=== PATIENT | female | born 1935 | race Two or more races ===

== ENCOUNTER 2020-10-29 12:43 | Inpatient (IN) | payer MEDICARE, OTHER ==
[~2020-10-29] VITALS: Ht 152.4 cm; Wt 49.1 kg
[2020-10-29] MEDS ORDERED: MORPHINE SULFATE INJECTION 2 MG/ML SYRG IV ONE (13:30)
[2020-10-29] MEDS ORDERED: ONDANSETRON HCL 4 MG/2 ML VIAL IV ONE (13:30)
[2020-10-29 13:58] LABS: Basophils # (auto) 0.1 10 ^3/uL (0-0.2); Basophils % (auto) 0.8 % (0.0-2.0); Eosinophils # (auto) 0.2 10 ^3/uL (0-0.8); Eosinophils % (auto) 2.9 % (0.0-7.0); Hematocrit 37.2 % (36.0-46.0); Hemoglobin 12.4 g/dL (12.2-16.2); Lymphocytes # (auto) 1.1 10 ^3/uL (0.4-5.4); Lymphocytes % (auto) 16.5 % (10.0-50.0); Mean Corpuscular Hemoglobin 33.7 pg (28.0-32.0); Mean Corpuscular Hgb Conc. 33.5 g/dL (32.0-36.0); Mean Corpuscular Volume 100.6 fL (80.0-100.0); Monocytes # (auto) 0.6 10 ^3/uL (0-1.3); Monocytes % (auto) 9.6 % (0.0-12.0); Neutrophils # (auto) 4.8 10 ^3/uL (1.6-8.6); Neutrophils % (auto) 70.2 % (37.0-80.0); Red Cell Distribution Width 14.7 % (11.8-14.3); White Blood Cell 6.8 10^3/uL (4.4-10.8)
[2020-10-29 14:07] LABS: INR 1.1 (0.9-1.15); Partial Thromboplastin Time 29.4 sec (23.6-33.0)
[2020-10-29 14:32] LABS: Albumin 3.1 g/dL (3.4-5.0); Anion Gap 6 (5-15); Blood Urea Nitrogen 17 mg/dL (7-18); Carbon Dioxide 32 mmol/L (21-32); Chloride 98 mmol/L (98-107); Glucose 99 mg/dL (74-106); Potassium 4.3 mmol/L (3.5-5.1); Sodium 136 mmol/L (136-145)
[2020-10-29 14:40] LABS: Alanine Aminotransferase 25 U/L (13-56); Alkaline Phosphatase 76 U/L (45-117); Aspartate Aminotransferase 31 U/L (15-37); Bilirubin, Total 0.3 mg/dL (0.2-1.0); GFR African American 106 mL/min; GFR Non-African American 87 mL/min; Total Protein 7.7 g/dL (6.4-8.2)
[2020-10-29 14:54] LABS: Urine Bacteria NONE SEEN /hpf (None Seen); Urine Blood Negative /uL (Negative); Urine Hyaline Cast FEW /lpf (0 - 2); Urine Specific Gravity 1.013 (1.001-1.035); Urine WBC 1 /hpf (0 - 5)
[2020-10-29] MEDS ORDERED: HYDROcodone-ACET 5/325MG TAB PO PRN (15:00)
[2020-10-29] MEDS ORDERED: NITROGLYCERIN 0.4 MG SL TAB SL PRN (15:00)
[2020-10-29] MEDS ORDERED: ONDANSETRON HCL 4 MG/2 ML VIAL IV PRN (15:00)
[2020-10-29] MEDS ORDERED: MORPHINE SULFATE INJECTION 2 MG/ML SYRG IV PRN (15:00)
[2020-10-29] MEDS ORDERED: DOCUSATE SOD 100 MG CAP PO PRN (15:00)
[2020-10-29] MEDS ORDERED: ACETAMINOPHEN 500 MG TAB PO PRN (15:00)
[2020-10-29 19:45] VITALS: BP 143/71
[2020-10-29] MEDS: MORPHINE SULFATE INJECTION 2 MG/ML SYRG IV PRN (20:37)
[2020-10-29 21:31] VITALS: BP 143/71
[2020-10-30 05:00] VITALS: BP 142/59
[2020-10-30] MEDS ORDERED: PRIM250T29 PO (08:22)
[2020-10-30] MEDS: MORPHINE SULFATE INJECTION 2 MG/ML SYRG IV PRN ×2 (08:22→21:34)
[2020-10-30] MEDS ORDERED: ASPI-543 PO (08:22)
[2020-10-30] MEDS ORDERED: NIFE1TAB31 PO (08:22)
[2020-10-30] MEDS ORDERED: ESCI10TA PO (08:22)
[2020-10-30] MEDS ORDERED: CLON0.1D7 TD (08:22)
[2020-10-30] MEDS ORDERED: ROSU5TAB5 PO (08:22)
[2020-10-30] MEDS ORDERED: METO-6 PO (08:22)
[2020-10-30] MEDS ORDERED: LOSA-39 PO (08:22)
[2020-10-30 09:00] VITALS: BP 145/68
[2020-10-30] MEDS ORDERED: PANTOPRAZOLE 40 MG TAB PO SCH (10:00)
[2020-10-30] MEDS ORDERED: ENOXAPARIN SOD 40 MG/0.4 ML SYRINGE SC SCH (10:00)
[2020-10-30] MEDS ORDERED: TRANEXAMIC ACID 20 ML ONE (12:10)
[2020-10-30] MEDS ORDERED: EPINEPHrine HCL 1 MG/1 ML AMP ONE (12:11)
[2020-10-30] MEDS ORDERED: VANCOMYCIN HCL 1000 MG VL ONE (12:11)
[2020-10-30] MEDS ORDERED: fentaNYL CITRATE 100 MCG/2 ML VL ONE (12:45)
[2020-10-30] MEDS ORDERED: MIDAZOLAM HCL 2MG/2ML 2ml VIAL (1mg/ml) ONE (12:46)
[2020-10-30] MEDS ORDERED: BUPIVACAINE 0.5% P/F INJ 10 ML VIAL ONE (12:51)
[2020-10-30] MEDS ORDERED: ceFAZolin 1GM/50ML 100 ML IV ONE (12:55)
[2020-10-30 13:00] VITALS: BP 131/69
[2020-10-30] MEDS ORDERED: DexAMETHasone SOD PHOS 10MG/1ML VIAL INJ ONE (13:41)
[2020-10-30] MEDS ORDERED: PROPOFOL 10 MG/ML 20 ML IV ONE (13:58)
[2020-10-30] MEDS ORDERED: HYDROmorphone HCL 2 MG/ML VL IV PRN (14:00)
[2020-10-30] MEDS ORDERED: ePHEDrine SULFATE 50 MG/ML AMP IV PRN (14:00)
[2020-10-30] MEDS ORDERED: MIDAZOLAM HCL 2MG/2ML 2ml VIAL (1mg/ml) IV PRN (14:00)
[2020-10-30] MEDS ORDERED: MORPHINE SULFATE 4 MG/ML SYR/VIAL IV PRN (14:00)
[2020-10-30] MEDS ORDERED: LABETALOL HCL 5 MG/ML 4ML SYRINGE IV PRN (14:00)
[2020-10-30] MEDS ORDERED: hydrALAZINE HCL 20 MG/ML VL IV PRN (14:00)
[2020-10-30] MEDS ORDERED: ONDANSETRON HCL 4 MG/2 ML VIAL IV PRN (14:00)
[2020-10-30] MEDS ORDERED: IPRATROPIUM BROM 0.5 MG/2.5ML INH SOL NEB SCH (18:00)
[2020-10-30] MEDS ORDERED: ALBUTEROL SULF 2.5 MG/0.5ML(0.5%) NEB SOLN NEB SCH (18:00)
[2020-10-30] MEDS: ceFAZolin 1GM/50ML 50 ML IV SCH (21:15)
[2020-10-30] MEDS: LACTATED RINGER'S 1,000 ML IV SCH (21:16)
[2020-10-30 22:00] VITALS: BP 133/113
[2020-10-31] VITALS (8 sets, daily range): BP systolic 116–139; BP diastolic 51–69
[2020-10-31] MEDS: MORPHINE SULFATE INJECTION 2 MG/ML SYRG IV PRN ×2 (01:24→05:19)
[2020-10-31] MEDS: LACTATED RINGER'S 1,000 ML IV SCH (05:18)
[2020-10-31] MEDS: ceFAZolin 1GM/50ML 50 ML IV SCH (05:18)
[2020-10-31 06:21] LABS: Basophils # (auto) 0.1 10 ^3/uL (0-0.2); Eosinophils # (auto) 0 10 ^3/uL (0-0.8); Eosinophils % (auto) 0.1 % (0.0-7.0); Hematocrit 22.8 % (36.0-46.0); Monocytes # (auto) 1.3 10 ^3/uL (0-1.3); Nucleated Red Blood Cells % 0.1 %; Red Blood Cells 2.26 10^6/uL (4.0-5.20)
[2020-10-31 06:24] LABS: Basophils % (auto) 0.9 % (0.0-2.0); Lymphocytes # (auto) 0.9 10 ^3/uL (0.4-5.4); Lymphocytes % (auto) 7.1 % (10.0-50.0); Mean Corpuscular Hemoglobin 34.1 pg (28.0-32.0); Mean Corpuscular Hgb Conc. 33.8 g/dL (32.0-36.0); Monocytes % (auto) 10.9 % (0.0-12.0); Neutrophils # (auto) 9.8 10 ^3/uL (1.6-8.6); Red Cell Distribution Width 14.3 % (11.8-14.3)
[2020-10-31 06:40] LABS: Calcium 8.1 mg/dL (8.5-10.1); Potassium 4.1 mmol/L (3.5-5.1)
[2020-10-31] MEDS: IPRATROPIUM BROM 0.5 MG/2.5ML INH SOL NEB SCH ×3 (07:01→18:42)
[2020-10-31] MEDS: ALBUTEROL SULF 2.5 MG/0.5ML(0.5%) NEB SOLN NEB SCH ×3 (07:01→18:43)
[2020-10-31 07:45] LABS: Hemoglobin 7.7 g/dL (12.2-16.2)
[2020-10-31] MEDS ORDERED: ENOXAPARIN SOD 40 MG/0.4 ML SYRINGE SC SCH (10:00)
[2020-10-31] MEDS ORDERED: CITALOPRAM HYDROBR 20 MG TAB PO ONE (10:30)
[2020-10-31] MEDS ORDERED: METOPROLOL SUCCINATE XL 50 MG TAB PO ONE (10:30)
[2020-10-31] MEDS: PRIMIDONE 50 MG TAB PO SCH ×2 (10:45→21:04)
[2020-10-31 11:15] LABS: Hematocrit 21.6 % (36.0-46.0); Hemoglobin 7.4 g/dL (12.2-16.2)
[2020-10-31 18:38] LABS: Folate (Folic Acid) 6.06 ng/mL (5.38-24)
[2020-10-31] MEDS: HYDROcodone-ACET 5/325MG TAB PO PRN (19:54)
[2020-11-01 05:00] VITALS: BP 148/71
[2020-11-01] MEDS: HYDROcodone-ACET 5/325MG TAB PO PRN ×2 (05:27→16:18)
[2020-11-01] MEDS: PRIMIDONE 50 MG TAB PO SCH ×2 (05:27→13:38)
[2020-11-01 06:06] LABS: Basophils # (auto) 0.1 10 ^3/uL (0-0.2); Basophils % (auto) 0.4 % (0.0-2.0); Eosinophils # (auto) 0 10 ^3/uL (0-0.8); Hematocrit 29.3 % (36.0-46.0); Lymphocytes # (auto) 0.8 10 ^3/uL (0.4-5.4); Lymphocytes % (auto) 5.9 % (10.0-50.0); Mean Corpuscular Hemoglobin 32.4 pg (28.0-32.0); Mean Corpuscular Hgb Conc. 34.1 g/dL (32.0-36.0); Mean Corpuscular Volume 94.9 fL (80.0-100.0); Monocytes # (auto) 1.5 10 ^3/uL (0-1.3); Monocytes % (auto) 10.3 % (0.0-12.0); Neutrophils # (auto) 11.8 10 ^3/uL (1.6-8.6); Neutrophils % (auto) 83.4 % (37.0-80.0); Red Blood Cells 3.09 10^6/uL (4.0-5.20); Red Cell Distribution Width 17.9 % (11.8-14.3); White Blood Cell 14.1 10^3/uL (4.4-10.8)
[2020-11-01] MEDS: ALBUTEROL SULF 2.5 MG/0.5ML(0.5%) NEB SOLN NEB SCH ×3 (07:22→18:00)
[2020-11-01] MEDS: IPRATROPIUM BROM 0.5 MG/2.5ML INH SOL NEB SCH ×3 (07:22→18:00)
[2020-11-01 09:00] VITALS: BP 113/62
[2020-11-01] MEDS ORDERED: CITALOPRAM HYDROBR 20 MG TAB PO SCH (10:00)
[2020-11-01] MEDS ORDERED: ENOXAPARIN SOD 40 MG/0.4 ML SYRINGE SC SCH (10:00)
[2020-11-01] MEDS ORDERED: METOPROLOL SUCCINATE XL 50 MG TAB PO SCH (10:00)
[2020-11-01 13:00] VITALS: BP 144/75
[2020-11-01 16:25] VITALS: BP 113/62
== END 2020-11-01 18:10 | DRG 522 ==
LOC: ER 12:43 → TELE 14:47 → TELE-WESTW 19:43
PROVIDERS: ADMIT Nurse Practitioner Acute Care; ATTEND Internal Medicine
PROC: 0SRR0J9 Replacement of Right Hip Joint, Femoral Surface with Synthetic Substitute, Cemented, Open Approach (ICD-10-PCS; principal; 2020-10-30 13:31)
PROC: 30233N1 Transfusion of Nonautologous Red Blood Cells into Peripheral Vein, Percutaneous Approach (ICD-10-PCS; 2020-10-31)
DX: M84.659 Pathological fracture in other disease, hip, unspecified (principal); S42.291A Other displaced fracture of upper end of right humerus, initial encounter for closed fracture; R64 Cachexia; I31.3 Pericardial effusion (noninflammatory); D62 Acute posthemorrhagic anemia; Z68.1 Body mass index [BMI] 19.9 or less, adult; Z20.822 Contact with and (suspected) exposure to COVID-19; I27.20 Pulmonary hypertension, unspecified; I10 Essential (primary) hypertension; E78.5 Hyperlipidemia, unspecified; W18.39XA Other fall on same level, initial encounter; Y93.89 Activity, other specified; Y92.89 Other specified places as the place of occurrence of the external cause; Y99.8 Other external cause status
CPT/HCPCS: 36415; 51702; 71045; 72170; 73700; 80048; 80053; 81001; 82607; 82746; 84484; 84702; 85014; 85018; 85025; 85379; 85610; 85730; 86850; 86900; 86901; 86920; 87426; 93005; 93306; 93971; 94640; 96374; 96375; A4565; C1776; G0378; J0171; J0690; J1100; J2250; J2405; J2704; J3490

== ENCOUNTER 2021-01-15 09:46 | Inpatient (IN) | payer MEDICARE, OTHER ==
[~2021-01-15] VITALS: Ht 162.6 cm; Wt 37.8 kg
[~2021-01-15 09:46] MED LIST: ASPI-543 PO; CLON0.1D7 TD; ESCI10TA PO; PRIM250T29 PO; ROSU5TAB5 PO
[2021-01-15 11:06] LABS: Basophils # (auto) 0 10 ^3/uL (0-0.2); Basophils % (auto) 0.5 % (0.0-2.0); Eosinophils # (auto) 0.3 10 ^3/uL (0-0.8); Eosinophils % (auto) 3.9 % (0.0-7.0); Hematocrit 38.9 % (36.0-46.0); Hemoglobin 12.9 g/dL (12.2-16.2); Lymphocytes # (auto) 1.2 10 ^3/uL (0.4-5.4); Lymphocytes % (auto) 18.5 % (10.0-50.0); Mean Corpuscular Hemoglobin 33.3 pg (28.0-32.0); Mean Corpuscular Hgb Conc. 33.1 g/dL (32.0-36.0); Mean Corpuscular Volume 100.4 fL (80.0-100.0); Monocytes # (auto) 0.6 10 ^3/uL (0-1.3); Monocytes % (auto) 9.6 % (0.0-12.0); Neutrophils # (auto) 4.3 10 ^3/uL (1.6-8.6); Neutrophils % (auto) 67.5 % (37.0-80.0); Nucleated Red Blood Cells % 0.1 %; Red Blood Cells 3.87 10^6/uL (4.0-5.20); Red Cell Distribution Width 14.4 % (11.8-14.3); White Blood Cell 6.4 10^3/uL (4.4-10.8)
[2021-01-15 11:17] LABS: Calcium 8.4 mg/dL (8.5-10.1); Potassium 4.1 mmol/L (3.5-5.1)
[2021-01-15 11:26] LABS: Albumin 3.1 g/dL (3.4-5.0); BUN/Creatinine Ratio 31.8; Bilirubin, Total 0.3 mg/dL (0.2-1.0); Total Protein 7.6 g/dL (6.4-8.2)
[2021-01-15] MEDS ORDERED: SODIUM CHLORIDE 0.9% 500 ML IVB ONE (11:30)
[2021-01-15] MEDS ORDERED: SODIUM CHLORIDE 0.9% 1,000 ML IV ONE (11:30)
[2021-01-15 11:51] LABS: INR 1.12 (0.9-1.15); Partial Thromboplastin Time 29.1 sec (23.6-33.0)
[2021-01-15 14:45] LABS: Alcohol, Urine < 3.0 mg/dL (0-10); Amphetamine Screen, Urine NEGATIVE (NEGATIVE); Barbiturate Scree,Urine POSITIVE (NEGATIVE); Benzodiazephine Screen, Urine NEGATIVE (NEGATIVE); Cannabinoid Screen, Urine NEGATIVE (NEGATIVE); Cocaine Screen, Urine NEGATIVE (NEGATIVE); Phencyclidine Screen, Urine NEGATIVE (NEGATIVE)
[2021-01-15] MEDS ORDERED: MORPHINE SULFATE INJECTION 2 MG/ML SYRG IV PRN ×2 (14:45→22:00)
[2021-01-15] MEDS ORDERED: NITROGLYCERIN 0.4 MG SL TAB SL PRN ×2 (14:45→22:00)
[2021-01-15 14:53] LABS: Opiate Scree,Urine NEGATIVE (NEGATIVE)
[2021-01-15 15:17] LABS: Urine Bacteria NONE SEEN /hpf (None Seen); Urine Blood Negative /uL (Negative); Urine Mucus FEW (None Seen); Urine Specific Gravity 1.016 (1.001-1.035); Urine WBC 1 /hpf (0 - 5)
[2021-01-15] MEDS ORDERED: NIFE1TAB31 PO (15:48)
[2021-01-15] MEDS ORDERED: METO-289 PO (15:48)
[2021-01-15] MEDS ORDERED: LOSA-39 PO (15:48)
[2021-01-15] MEDS ORDERED: CHOL500021 PO (15:48)
[2021-01-15] MEDS ORDERED: LUTE20TA2 PO (15:48)
[2021-01-15] MEDS ORDERED: CALC1TAB92 PO (15:48)
[2021-01-15] MEDS ORDERED: TETR0.0542 EACHEYE (15:50)
[2021-01-15] MEDS ORDERED: ACET-1304 PO (15:50)
[2021-01-15] MEDS ORDERED: LORazepam 0.5 MG TAB PO PRN (22:00)
[2021-01-15] MEDS ORDERED: CALCIUM W/VIT D (600MG/400IU) TAB PO ONE (22:00)
[2021-01-15] MEDS ORDERED: METOPROLOL SUCCINATE XL 50 MG TAB PO ONE (22:00)
[2021-01-15] MEDS ORDERED: DOCUSATE SOD 100 MG CAP PO PRN (22:00)
[2021-01-15] MEDS ORDERED: IPRATROPIUM BROM 0.5 MG/2.5ML INH SOL NEB SCH (22:00)
[2021-01-15] MEDS ORDERED: FAMOTIDINE (10MG/ML) 2ML VL IV ONE (22:00)
[2021-01-15] MEDS ORDERED: NIFEdipine ER 30 MG TAB PO ONE (22:00)
[2021-01-15] MEDS ORDERED: HYDROcodone-ACET 5/325MG TAB PO PRN (22:00)
[2021-01-15] MEDS ORDERED: ONDANSETRON HCL 4 MG/2 ML VIAL IV PRN (22:00)
[2021-01-15] MEDS ORDERED: FAMOTIDINE (10MG/ML) 2ML VL IV SCH (22:00)
[2021-01-15] MEDS ORDERED: ALUM & MAG HYDROX-SIMETH LIQ(MAALOX) 30 ML PO PRN (22:00)
[2021-01-15] MEDS ORDERED: MULTIPLE VITAMINS W/ MINERALS TAB PO ONE (22:00)
[2021-01-15] MEDS ORDERED: BUDESONIDE (INHALATION) 0.5 MG/2 ML NEB NEB ONE (22:00)
[2021-01-15] MEDS ORDERED: ATORVASTATIN 20 MG TAB PO SCH (22:00)
[2021-01-15] MEDS ORDERED: hydrALAZINE HCL 20 MG/ML VL IV PRN (22:00)
[2021-01-15] MEDS ORDERED: ASPirin 81 mg TAB PO ONE (22:00)
[2021-01-15] MEDS ORDERED: IPRATROPIUM BROM 0.5 MG/2.5ML INH SOL NEB ONE (22:00)
[2021-01-15] MEDS ORDERED: ATORVASTATIN 20 MG TAB PO ONE (22:00)
[2021-01-15 22:14] LABS: Cholesterol 144 mg/dL (< 200); Triglycerides 121 mg/dL (< 150)
[2021-01-15 22:17] LABS: HDL Cholesterol 53 mg/dL (40-59); LDL Cholesterol 67 mg/dL (< 100)
[2021-01-15 22:23] LABS: Folate (Folic Acid) 5.67 ng/mL (5.38-24)
[2021-01-15 22:37] VITALS: BP 160/60
[2021-01-15] MEDS: BUDESONIDE (INHALATION) 0.5 MG/2 ML NEB NEB SCH (22:55)
[2021-01-15] MEDS: IPRATROPIUM BROM 0.5 MG/2.5ML INH SOL NEB PRN (22:55)
[2021-01-15] MEDS: PRIMIDONE 50 MG TAB PO SCH (23:12)
[2021-01-15] MEDS: SODIUM CHLORIDE 0.9% 1,000 ML IV SCH (23:18)
[2021-01-16 00:04] VITALS: BP 156/80
[2021-01-16 05:26] LABS: Basophils # (auto) 0 10 ^3/uL (0-0.2); Basophils % (auto) 0.8 % (0.0-2.0); Eosinophils # (auto) 0.3 10 ^3/uL (0-0.8); Eosinophils % (auto) 4.2 % (0.0-7.0); Hematocrit 36.5 % (36.0-46.0); Hemoglobin 12.2 g/dL (12.2-16.2); Lymphocytes # (auto) 1.3 10 ^3/uL (0.4-5.4); Lymphocytes % (auto) 19.9 % (10.0-50.0); Mean Corpuscular Hemoglobin 33.3 pg (28.0-32.0); Mean Corpuscular Hgb Conc. 33.5 g/dL (32.0-36.0); Mean Corpuscular Volume 99.4 fL (80.0-100.0); Monocytes # (auto) 0.6 10 ^3/uL (0-1.3); Monocytes % (auto) 9.9 % (0.0-12.0); Neutrophils # (auto) 4.2 10 ^3/uL (1.6-8.6); Neutrophils % (auto) 65.2 % (37.0-80.0); Red Blood Cells 3.68 10^6/uL (4.0-5.20); White Blood Cell 6.5 10^3/uL (4.4-10.8)
[2021-01-16 05:45] LABS: INR 1.13 (0.9-1.15); Partial Thromboplastin Time 31.2 sec (23.6-33.0)
[2021-01-16] MEDS: PRIMIDONE 50 MG TAB PO SCH ×3 (05:48→21:26)
[2021-01-16 06:23] LABS: Albumin 2.7 g/dL (3.4-5.0); BUN/Creatinine Ratio 31.9; Bilirubin, Total 0.4 mg/dL (0.2-1.0); Calcium 7.7 mg/dL (8.5-10.1); Magnesium 2.6 mg/dL (1.6-2.6); Phosphorus 2.7 mg/dL (2.5-4.90); Total Protein 6.4 g/dL (6.4-8.2); Uric Acid 4.5 mg/dL (2.6-6.0)
[2021-01-16] MEDS: IPRATROPIUM BROM 0.5 MG/2.5ML INH SOL NEB PRN ×2 (07:39→19:09)
[2021-01-16] MEDS: BUDESONIDE (INHALATION) 0.5 MG/2 ML NEB NEB SCH ×2 (07:40→19:09)
[2021-01-16] MEDS ORDERED: ASPirin 81 mg TAB PO SCH (10:00)
[2021-01-16] MEDS ORDERED: ENOXAPARIN SOD 40 MG/0.4 ML SYRINGE SC SCH (10:00)
[2021-01-16] MEDS ORDERED: cloNIDine 0.1 mg/24hr 7 DAY PATCH TD ONE (11:45)
[2021-01-16] MEDS: CALCIUM W/VIT D (600MG/400IU) TAB PO SCH ×2 (13:03→18:52)
[2021-01-16] MEDS: MULTIPLE VITAMINS W/ MINERALS TAB PO SCH (13:04)
[2021-01-16] MEDS: FAMOTIDINE (10MG/ML) 2ML VL IV SCH (13:04)
[2021-01-16] MEDS: CITALOPRAM HYDROBR 20 MG TAB PO SCH (13:04)
[2021-01-16] MEDS: NIFEdipine ER 30 MG TAB PO SCH (13:05)
[2021-01-16] MEDS: CHOLECALCIFEROL (VITD3) 2,000 UNIT CAP/TAB PO SCH (13:06)
[2021-01-16] MEDS: METOPROLOL SUCCINATE XL 50 MG TAB PO SCH (13:06)
[2021-01-16 14:07] VITALS: BP 151/59
[2021-01-16 16:21] VITALS: BP 146/62
[2021-01-16] MEDS: SODIUM CHLORIDE 0.9% 1,000 ML IV SCH ×2 (16:23→21:55)
[2021-01-16] MEDS ORDERED: HYDROcodone-ACET 5/325MG TAB PO ONE (19:15)
[2021-01-16 22:00] VITALS: BP 140/78
[2021-01-16] MEDS ORDERED: ATORVASTATIN 20 MG TAB PO SCH (22:00)
[2021-01-17 05:00] VITALS: BP 140/66
[2021-01-17] MEDS: PRIMIDONE 50 MG TAB PO SCH (06:04)
[2021-01-17] MEDS: IPRATROPIUM BROM 0.5 MG/2.5ML INH SOL NEB PRN (08:34)
[2021-01-17] MEDS: BUDESONIDE (INHALATION) 0.5 MG/2 ML NEB NEB SCH (08:34)
[2021-01-17 09:00] VITALS: BP 151/59
[2021-01-17] MEDS: CALCIUM W/VIT D (600MG/400IU) TAB PO SCH (10:39)
[2021-01-17] MEDS: CITALOPRAM HYDROBR 20 MG TAB PO SCH (10:39)
[2021-01-17] MEDS: MULTIPLE VITAMINS W/ MINERALS TAB PO SCH (10:39)
[2021-01-17] MEDS: FAMOTIDINE (10MG/ML) 2ML VL IV SCH (10:39)
[2021-01-17] MEDS: CHOLECALCIFEROL (VITD3) 2,000 UNIT CAP/TAB PO SCH (10:40)
[2021-01-17] MEDS: METOPROLOL SUCCINATE XL 50 MG TAB PO SCH (10:40)
[2021-01-17] MEDS: NIFEdipine ER 30 MG TAB PO SCH (10:40)
[2021-01-23] MEDS ORDERED: cloNIDine 0.1 mg/24hr 7 DAY PATCH TD SCH (11:45)
== END 2021-01-17 14:50 | disposition home health service (06) | DRG 604 ==
LOC: EDBD 09:46 → ER 09:46 → TELE 14:37 → TELE-CENTR 22:30 → CENTRAL 01-16 11:49
PROVIDERS: ADMIT Hospitalist; ATTEND Internal Medicine
DX: S00.03XA Contusion of scalp, initial encounter (principal); R53.2 Functional quadriplegia; G93.41 Metabolic encephalopathy; E44.0 Moderate protein-calorie malnutrition; J96.10 Chronic respiratory failure, unspecified whether with hypoxia or hypercapnia; I11.9 Hypertensive heart disease without heart failure; W19.XXXA Unspecified fall, initial encounter; S00.11XA Contusion of right eyelid and periocular area, initial encounter; I27.21 Secondary pulmonary arterial hypertension; J44.9 Chronic obstructive pulmonary disease, unspecified; Z20.822 Contact with and (suspected) exposure to COVID-19; J84.10 Pulmonary fibrosis, unspecified; M50.223 Other cervical disc displacement at C6-C7 level; D53.9 Nutritional anemia, unspecified; D75.89 Other specified diseases of blood and blood-forming organs; E78.5 Hyperlipidemia, unspecified; F03.90 Unspecified dementia, unspecified severity, without behavioral disturbance, psychotic disturbance, mood disturbance, and anxiety; F32.9 Major depressive disorder, single episode, unspecified; G25.0 Essential tremor; G40.909 Epilepsy, unspecified, not intractable, without status epilepticus; M19.90 Unspecified osteoarthritis, unspecified site; M48.00 Spinal stenosis, site unspecified; M81.0 Age-related osteoporosis without current pathological fracture; Y93.89 Activity, other specified; Y92.89 Other specified places as the place of occurrence of the external cause; Y99.8 Other external cause status; Z79.899 Other long term (current) drug therapy
CPT/HCPCS: 36415; 70450; 70486; 71045; 72125; 80053; 80061; 80307; 81001; 82306; 82607; 82746; 82962; 83036; 83735; 83880; 84100; 84443; 84484; 84550; 85025; 85610; 85730; 87040; 87086; 87426; 93005; 93306; 93886; 94640; 96360; 96361; 97163; G0378; J3490